=== PATIENT | female | born 1990 | race African-American/Black ===

== ENCOUNTER 2017-05-18 05:50 | Emergency (ER) | payer SELFPAY ==
[~2017-05-18] VITALS: Ht 170.2 cm; Wt 54.4 kg
[~2017-05-18 05:50] MED LIST: LAMO100T2 PO; SERT50TA PO
--- NOTE | 2017-05-18 06:32 | NUR ---
Was sick throughout April, but about 3 days ago got much worse. Pt c/o GARCIA, head congestion, cough, body aches. Pt denies CP, SOB, dizziness, n/v, no other complaints, minor distress noted.
[2017-05-18] MEDS ORDERED: AZITHROMYCIN 250 MG TABLET PO ONE (06:45)
--- NOTE | 2017-05-18 06:50 | NUR ---
Gave pt RX and d/c instructions, verbalized understanding.
[2017-05-18] MEDS ORDERED: AZITHROMYCIN 250 MG TABLET ONE (07:01)
== END 2017-05-18 06:57 | disposition home or self-care (01) ==
LOC: ER 05:50
DX: J06.9 Acute upper respiratory infection, unspecified (principal)
CPT/HCPCS: A4663; Q0144